=== PATIENT | female | born 1965 | race Caucasian/White ===

== ENCOUNTER 2016-09-19 10:22 | Emergency (ER) | payer OTHER ==
[2016-09-19] MEDS ORDERED: ADENOSINE 3 MG/ML 2 ML VIAL IVP STA (10:59)
[2016-09-19] MEDS ORDERED: SODIUM CHLORIDE 0.9% 500 ML IV STA (11:00)
--- NOTE | 2016-09-19 11:05 | ED ---
General Adult HPI - General Chief complaint: Chest Pain Stated complaint: chest pain Time Seen by Provider: 09/19/16 10:25 Source: patient, RN notes reviewed Mode of arrival: wheelchair - History of Present Illness Initial comments: This is a 51-year-old female who presents to the emergency department complaining of palpitations and little lightheadedness. Patient states she's had SVT 5 times in the past. Patient states this started about 9:30 this morning while she was walking across the floor. Patient states a lot of times she can hold of breath and making go away but today she was unsuccessful with this technique. Patient denies any chest pain. Patient denies any recent fever chills or cough. Patient denies any headache patient denies numbness weakness. Patient denies abdominal pain patient denies nausea vomiting diarrhea. - Related Data Home Medications Medication Instructions Recorded Confirmed Aspirin 162 mg PO DAILY PRN 09/19/16 09/19/16 Ibuprofen [Motrin] 800 mg PO DAILY PRN 09/19/16 09/19/16 Multivitamins, Thera [Multivitamin] 1 tab PO DAILY 09/19/16 09/19/16 Allergies Allergy/AdvReac Type Severity Reaction Status Date / Time amoxicillin [From Augmentin] Allergy Rash/Hives Verified 09/19/16 11:06 clavulanic acid Allergy Rash/Hives Verified 09/19/16 11:06 [From Augmentin] ether Allergy Rash/Hives Verified 09/19/16 11:06 Review of Systems ROS Statement: Those systems with pertinent positive or pertinent negative responses have been documented in the HPI. ROS Other: All systems not noted in ROS Statement are negative. Past Medical History Past Medical History: Supraventricular Tachycardia (SVT) Additional Past Medical History / Comment(s): Brain tumor removed 1993, SVT History of Any Multi-Drug Resistant Organisms: None Reported Past Surgical History: Orthopedic Surgery, Tonsillectomy, Tubal Ligation Additional Past Surgical History / Comment(s): brain surgery/ knee Past Psychological History: Anxiety Smoking Status: Never smoker Past Alcohol Use History: Rare Past Drug Use History: None Reported General Exam - General Exam Comments Initial Comments: GENERAL: Patient is well-developed and well-nourished. Patient is nontoxic and well- hydrated and is in mild distress. ENT: Neck is soft and supple. No significant lymphadenopathy is noted. Oropharynx is clear. Moist mucous membranes. Neck has full range of motion without eliciting any pain. EYES: The sclera were anicteric and conjunctiva were pink and moist. Extraocular movements were intact and pupils were equal round and reactive to light. Eyelids were unremarkable. PULMONARY: Unlabored respirations. Good breath sounds bilaterally. No audible rales rhonchi or wheezing was noted. CARDIOVASCULAR: Patient is tachycardic at 180 beats a minute ABDOMEN: Soft and nontender with normal bowel sounds. No palpable organomegaly was noted. There is no palpable pulsatile mass. SKIN: Skin is clear with no lesions or rashes and otherwise unremarkable. NEUROLOGIC: Patient is alert and oriented x3. Cranial nerves II through XII are grossly intact. Motor and sensory are also intact. Normal speech, volume and content. Symmetrical smile. MUSCULOSKELETAL: Normal extremities with adequate strength and full range of motion. No lower extremity swelling or edema. No calf tenderness. LYMPHATICS: No significant lymphadenopathy is noted PSYCHIATRIC: Normal psychiatric evaluation. Normal interpersonal interactions appears functionally intact in deals appropriately with others. No signs of depression. No signs of anxiety. Course Vital Signs 09/19/16 09/19/16 09/19/16 10:25 10:30 11:33 Temperature 97.5 F L Pulse Rate 185 H 88 93 Respiratory 22 18 18 Rate Blood Pressure 142/77 160/77 110/73 O2 Sat by Pulse 99 98 98 Oximetry Medical Decision Making - Medical Decision Making EKG shows supraventricular tachycardia 181 bpm QRS is 72 QT interval is 246 QTC is 427 per patient's EKG does show some diffuse ST segment depression in the precordial leads a repeat will be done once the patient is converted. Patient was given 6 no evidence of adenosine converted the patient to sinus rhythm. Patient's second EKG after adenosine showed normal sinus rhythm at 90 bpm. It was 152 QRS is 70 QT interval 390 QTC is 477. Chest x-ray was normal. Went back into reevaluate the patient she was feeling back to her baseline. - Lab Data Result diagrams: 09/19/16 10:50 09/19/16 10:50 Lab Results 09/19/16 09/19/16 09/19/16 Range/Units 10:50 10:50 10:50 WBC 9.2 (3.8-10.6) k/uL RBC 5.00 (3.80-5.40) m/uL Hgb 14.8 (11.4-16.0) gm/dL Hct 44.7 (34.0-46.0) % MCV 89.4 (80.0-100.0) fL MCH 29.6 (25.0-35.0) pg MCHC 33.1 (31.0-37.0) g/dL RDW 13.5 (11.5-15.5) % Plt Count 218 (150-450) k/uL Neutrophils % 57 % Lymphocytes % 34 % Monocytes % 5 % Eosinophils % 2 % Basophils % 0 % Neutrophils # 5.2 (1.3-7.7) k/uL Lymphocytes # 3.1 (1.0-4.8) k/uL Monocytes # 0.4 (0-1.0) k/uL Eosinophils # 0.1 (0-0.7) k/uL Basophils # 0.0 (0-0.2) k/uL PT (9.0-12.0) sec INR (<1.1) APTT (22.0-30.0) sec Sodium 143 (137-145) mmol/L Potassium 4.2 (3.5-5.1) mmol/L Chloride 109 H (98-107) mmol/L Carbon Dioxide 21 L (22-30) mmol/L Anion Gap 13 mmol/L BUN 14 (7-17) mg/dL Creatinine 0.61 (0.52-1.04) mg/dL Est GFR (MDRD) Af Amer >60 (>60 ml/min/1.73 sqM) Est GFR (MDRD) Non-Af >60 (>60 ml/min/1.73 sqM) Glucose 142 H (74-99) mg/dL Calcium 9.1 (8.4-10.2) mg/dL Magnesium 1.7 (1.6-2.3) mg/dL Total Bilirubin 0.6 (0.2-1.3) mg/dL AST 33 (14-36) U/L ALT 46 (9-52) U/L Alkaline Phosphatase 95 (38-126) U/L Total Creatine Kinase 80 (30-135) U/L CK-MB (CK-2) 0.3 (0.0-2.4) ng/mL CK-MB (CK-2) Rel Index 0.4 Troponin I <0.012 (0.000-0.034) ng/mL Total Protein 7.3 (6.3-8.2) g/dL Albumin 3.9 (3.5-5.0) g/dL 09/19/16 Range/Units 10:50 WBC (3.8-10.6) k/uL RBC (3.80-5.40) m/uL Hgb (11.4-16.0) gm/dL Hct (34.0-46.0) % MCV (80.0-100.0) fL MCH (25.0-35.0) pg MCHC (31.0-37.0) g/dL RDW (11.5-15.5) % Plt Count (150-450) k/uL Neutrophils % % Lymphocytes % % Monocytes % % Eosinophils % % Basophils % % Neutrophils # (1.3-7.7) k/uL Lymphocytes # (1.0-4.8) k/uL Monocytes # (0-1.0) k/uL Eosinophils # (0-0.7) k/uL Basophils # (0-0.2) k/uL PT 10.3 (9.0-12.0) sec INR 1.0 (<1.1) APTT 23.7 (22.0-30.0) sec Sodium (137-145) mmol/L Potassium (3.5-5.1) mmol/L Chloride (98-107) mmol/L Carbon Dioxide (22-30) mmol/L Anion Gap mmol/L BUN (7-17) mg/dL Creatinine (0.52-1.04) mg/dL Est GFR (MDRD) Af Amer (>60 ml/min/1.73 sqM) Est GFR (MDRD) Non-Af (>60 ml/min/1.73 sqM) Glucose (74-99) mg/dL Calcium (8.4-10.2) mg/dL Magnesium (1.6-2.3) mg/dL Total Bilirubin (0.2-1.3) mg/dL AST (14-36) U/L ALT (9-52) U/L Alkaline Phosphatase (38-126) U/L Total Creatine Kinase (30-135) U/L CK-MB (CK-2) (0.0-2.4) ng/mL CK-MB (CK-2) Rel Index Troponin I (0.000-0.034) ng/mL Total Protein (6.3-8.2) g/dL Albumin (3.5-5.0) g/dL Critical Care Time Critical Care Time: Yes Total Critical Care Time: 35 Disposition Clinical Impression: Supraventricular tachycardia Disposition: HOME SELF-CARE Condition: Good Instructions: Supraventricular Tachycardia (ED) Referrals: Za Love MD [Primary Care Provider] - 1-2 days Time of Disposition: 13:03
[2016-09-19 11:38] LABS: ALT 46 U/L (9-52); AST 33 U/L (14-36); Alkaline Phosphatase 95 U/L (38-126); Anion Gap 13 mmol/L; Blood Urea Nitrogen 14 mg/dL (7-17); Calcium 9.1 mg/dL (8.4-10.2); Carbon Dioxide 21 mmol/L (22-30); Chloride 109 mmol/L (98-107); Glucose 142 mg/dL (74-99); Magnesium 1.7 mg/dL (1.6-2.3); Non-African American GFR(MDRD) >60 (>60 ml/min/1.73 sqM); Potassium 4.2 mmol/L (3.5-5.1); Sodium 143 mmol/L (137-145); Total Bilirubin 0.6 mg/dL (0.2-1.3); Total Protein 7.3 g/dL (6.3-8.2)
[2016-09-19 11:42] LABS: Basophils % (A) 0 %; CH 30.4; CHCM 34.2; Eosinophils # (A) 0.1 k/uL (0-0.7); Eosinophils % (A) 2 %; HCT 44.7 % (34.0-46.0); HDW 2.85; HGB 14.8 gm/dL (11.4-16.0); Luc % (Auto) 2; Lymphocytes # (A) 3.1 k/uL (1.0-4.8); Lymphocytes % (A) 34 %; MCH 29.6 pg (25.0-35.0); MCHC 33.1 g/dL (31.0-37.0); MCV 89.4 fL (80.0-100.0); Monocytes # (A) 0.4 k/uL (0-1.0); Monocytes % (A) 5 %; Neutrophils # (A) 5.2 k/uL (1.3-7.7); Neutrophils % (A) 57 %; RDW 13.5 % (11.5-15.5); WBC 9.2 k/uL (3.8-10.6); WBC (Perox) 9.48
[2016-09-19 11:48] LABS: Creatine Kinase 80 U/L (30-135)
[2016-09-19 11:52] LABS: Partial Thromboplastin Time 23.7 sec (22.0-30.0); Prothrombin Time 10.3 sec (9.0-12.0)
[2016-09-19 12:01] LABS: Creatine Kinase MB 0.3 ng/mL (0.0-2.4); Troponin I <0.012 ng/mL (0.000-0.034)
--- NOTE | 2016-09-19 12:54 | XR ---
EXAMINATION TYPE: XR chest 2V DATE OF EXAM: 09/19/2016 12:49 PM COMPARISON: 10/15/2014 INDICATION: Chest pain SVT episode TECHNIQUE: Frontal and lateral views of the chest are obtained. FINDINGS: The heart size is normal. Pulmonary vasculature is at the upper limits of normal for size. Consider early volume overload. The lungs are clear. IMPRESSION: 1. Early volume overload could be considered with minimal borderline prominence of the pulmonary vasc ular markings. Overt failure is not identified.
[2016-09-19 13:24] VITALS: BP 162/87; PULSE 83; RESP 16; TEMP 97.7
== END 2016-09-19 13:44 | disposition home or self-care (01) ==
LOC: EC 10:22
DX: I47.1 Supraventricular tachycardia (principal); Z88.0 Allergy status to penicillin; Z88.8 Allergy status to other drugs, medicaments and biological substances
CPT/HCPCS: 96374; 99291; 36415; 93005; 80053; 82550; 82553; 83735; 84484; 85025; 85610; 85730; 71020; J0153

== ENCOUNTER 2023-10-27 12:22 | Emergency (ER) | payer OTHER ==
[2023-10-27 12:33] VITALS: RESP 18; TEMP 97.8
--- NOTE | 2023-10-27 13:26 | ED ---
Weakness HPI - General Chief complaint: Weakness Stated complaint: Weakness in legs Time Seen by Provider: 10/27/23 12:47 Source: patient, RN notes reviewed, old records reviewed, Caregiver Mode of arrival: ambulatory Limitations: no limitations - History of Present Illness Initial comments: This is a 58-year-old female to ER for bilateral lower extremity weakness. Patient has history of back pain and states she always has weak lower extremities and states that this is nothing new for her states that he thinks that she is having patient with stroke secondary to patient facial droop that he noticed today. The symptoms started when the patient woke this morning and have persisted here in the emergency department per the family the patient is herself denying any symptoms and would not be in the hospital but was not f for them MD Complaint: generalized weakness, focal weakness (Left side of face), numbness, tingling (Both legs) -: hour(s) Location: generalized Severity: mild Severity scale (1-10): 3 Consistency: constant Improves with: none Worsens with: none Context: recent illness, history of similar Associated Symptoms: denies other symptoms - Related Data Home Medications Medication Instructions Recorded Confirmed Aspirin 162 mg PO DAILY PRN 09/19/16 09/19/16 Ibuprofen [Motrin] 800 mg PO DAILY PRN 09/19/16 09/19/16 Multivitamins, Thera [Multivitamin] 1 tab PO DAILY 09/19/16 09/19/16 Allergies Allergy/AdvReac Type Severity Reaction Status Date / Time amoxicillin [From Augmentin] Allergy Rash/Hives Verified 10/27/23 12:32 clavulanic acid Allergy Rash/Hives Verified 10/27/23 12:32 [From Augmentin] ether Allergy Rash/Hives Verified 10/27/23 12:32 Review of Systems ROS Statement: Those systems with pertinent positive or pertinent negative responses have been documented in the HPI. ROS Other: All systems not noted in ROS Statement are negative. Past Medical History Past Medical History: Supraventricular Tachycardia (SVT) Additional Past Medical History / Comment(s): Brain tumor removed 1993, SVT History of Any Multi-Drug Resistant Organisms: None Reported Past Surgical History: Orthopedic Surgery, Tonsillectomy, Tubal Ligation Additional Past Surgical History / Comment(s): brain surgery/ knee Past Psychological History: Anxiety Smoking Status: Never smoker Past Alcohol Use History: Rare Past Drug Use History: None Reported General Exam - General Exam Comments Initial Comments: Patient does have a negative NIH here in the emergency department Limitations: no limitations General appearance: alert, in no apparent distress Head exam: Present: atraumatic, normocephalic, normal inspection Eye exam: Present: normal appearance, PERRL, EOMI. Absent: scleral icterus, conjunctival injection, periorbital swelling ENT exam: Present: normal exam, mucous membranes moist Neck exam: Present: normal inspection. Absent: tenderness, meningismus, lympha denopathy Respiratory exam: Present: normal lung sounds bilaterally. Absent: respiratory distress, wheezes, rales, rhonchi, stridor Cardiovascular Exam: Present: regular rate, normal rhythm, normal heart sounds. Absent: systolic murmur, diastolic murmur, rubs, gallop, clicks GI/Abdominal exam: Present: soft, normal bowel sounds. Absent: distended, tenderness, guarding, rebound, rigid Extremities exam: Present: normal inspection, full ROM, normal capillary refill. Absent: tenderness, pedal edema, joint swelling, calf tenderness Back exam: Present: normal inspection Neurological exam: Present: alert, oriented X3, CN II-XII intact Psychiatric exam: Present: normal affect, normal mood Skin exam: Present: warm, dry, intact, normal color. Absent: rash Course Vital Signs 10/27/23 10/27/23 12:26 15:31 Temperature 97.8 F Pulse Rate 76 78 Respiratory 18 18 Rate Blood Pressure 141/78 149/68 O2 Sat by Pulse 98 97 Oximetry - Reevaluation(s) Reevaluation #1: Medical records reviewed Reevaluation #2: Patient symptoms remain unchanged with patient refuses to agree that she has facial droop, she has looked in the mirror twice continuing to deny this althoug h disagrees Reevaluation #3: Patient informed of results and questions answered Reevaluation #4: 10/27/23 15:10 Was pt. sent in by a medical professional or institution (, PA, AIRPLANE RENTAL CLERK, urgent care, hospital, or fdc...) When possible be specific @ -no Did you speak to anyone other than the patient for history (EMS, parent, family, police, friend...)? What history was obtained from this source @ -no Did you review nursing and triage notes (agree or disagree)? Why? @ -agree Are old charts reviewed (outside hosp., previous admission, EMS record, old EKG, old radiological studies, urgent care reports/EKG's, fdc records)? Report findings @ -yes Differential Diagnosis (chest pain, altered mental status, abdominal pain women, abdominal pain men, vaginal bleeding, weakness, fever, dyspnea, syncope, headache, dizziness, GI bleed, back pain, seizure, CVA, palpatations, mental health, musculoskeletal)? @ -prior EKG interpreted by me (3pts min.). @ -yes X-rays interpreted by me (1pt min.). @ -yes negative for acute disease CT interpreted by me (1pt min.). @ -yes negative for acute disease U/S interpreted by me (1pt. min.). @ -no What testing was considered but not performed or refused? (CT, X-rays, U/S, labs)? Why? @ -none What meds were considered but not given or refused? Why? @ -none Did you discuss the management of the patient with other professionals (professionals i.e. , PA, AIRPLANE RENTAL CLERK, lab, RT, psych nurse, social psychologist, tool technician, teacher, chief operations officer, rn field case manager)? Give summary @ -no Was smoking cessation discussed for >3mins.? @ -no Was critical care preformed (if so, how long)? @ -no Were there social determinants of health that impacted care today? How? (Homelessness, low income, unemployed, alcoholism, drug addiction, transportation, low edu. Level, literacy, decrease access to med. care, correction, rehab)? @ -none Was there de-escalation of care discussed even if they declined (Discuss DNR or withdrawal of care, Hospice)? DNR status @ -no What co-morbidities impacted this encounter? (DM, HTN, Smoking, COPD, CAD, Cancer, CVA, ARF, Chemo, Hep., AIDS, mental health diagnosis, sleep apnea, morbid obesity)? @ -none Was patient admitted / discharged? Hospital course, mention meds given and route, prescriptions, significant lab abnormalities, going to OR and other pertinent info. @ - 58 female with some weakness in the legs concern for possible stroke. Patient has no findings of CVA here in the emergency department. No other complaints feeling well symptoms are continually improved. Patient refuses further evaluation here in the emergency department and does not believe she is having any stroke symptoms Discharge Undiagnosed new problem with uncertain prognosis? @ -no Drug Therapy requiring intensive monitoring for toxicity (Heparin, Nitro, Insulin, Cardizem)? @ -no Were any procedures done? @ -no Diagnosis/symptom? @ -TIA Acute, or Chronic, or Acute on Chronic? @ -Acute Uncomplicated (without systemic symptoms) or Complicated (systemic symptoms)? @ -Complicated Side effects of treatment? @ -no Exacerbation, Progression, or Severe Exacerbation? @ -exacerbation Poses a threat to life or bodily function? How? (Chest pain, USA, MA, pneumonia, PE, COPD, DKA, ARF, appy, cholecystitis, CVA, Diverticulitis, Homicidal, Suicidal, threat to staff... and all critical care pts) @ -yes with findings of CVA Reevaluation #5: Differential CVA Ischemic stroke, hemorrhagic stroke, brain tumor, atypical migraine, Wernicke's encephalopathy, seizure, multiple sclerosis, meningitis, encephalitis, hypoglycemia, Guillain-Winters, electrolytes disturbance, myasthenia gravis.... This is not meant to be an all-inclusive list EKG Findings - EKG Comments: EKG Findings:: EKG sinus 75 [place] 149 QRS 90 QTc 442 - EKG Results: EKG: interpreted by MIKE Medical Decision Making - Medical Decision Making 58 female with some weakness in the legs concern for possible stroke. Patient has no findings of CVA here in the emergency department. No other complaints feeling well symptoms are continually improved. Patient refuses further evaluation here in the emergency department and does not believe she is having any stroke symptoms - Lab Data Result diagrams: 10/27/23 13:41 10/27/23 13:41 Lab Results 10/27/23 10/27/23 10/27/23 Range/Units 13:41 13:41 13:41 WBC 9.8 (3.8-10.6) k/uL RBC 4.88 (3.80-5.40) m/uL Hgb 14.9 (11.4-16.0) gm/dL Hct 44.5 (34.0-46.0) % MCV 91.1 (80.0-100.0) fL MCH 30.5 (25.0-35.0) pg MCHC 33.5 (31.0-37.0) g/dL RDW 13.3 (11.5-15.5) % Plt Count 175 (150-450) k/uL MPV 9.5 Neutrophils % 61 % Lymphocytes % 32 % Monocytes % 4 % Eosinophils % 2 % Basophils % 1 % Neutrophils # 6.0 (1.3-7.7) k/uL Lymphocytes # 3.1 (1.0-4.8) k/uL Monocytes # 0.4 (0-1.0) k/uL Eosinophils # 0.1 (0-0.7) k/uL Basophils # 0.1 (0-0.2) k/uL Sodium 138 (137-145) mmol/L Potassium 4.4 (3.5-5.1) mmol/L Chloride 108 H (98-107) mmol/L Carbon Dioxide 25 (22-30) mmol/L Anion Gap 5 mmol/L BUN 14 (7-17) mg/dL Creatinine 0.39 L (0.52-1.04) mg/dL Est GFR (CKD-EPI)AfAm >90 (>60 ml/min/1.73 sqM) Est GFR (CKD-EPI)NonAf >90 (>60 ml/min/1.73 sqM) Glucose 223 H (74-99) mg/dL Plasma Lactic Acid Maxime 1.3 (0.7-2.0) mmol/L Calcium 9.2 (8.4-10.2) mg/dL Phosphorus 3.8 (2.5-4.5) mg/dL Magnesium 1.7 (1.6-2.3) mg/dL Total Bilirubin 0.6 (0.2-1.3) mg/dL AST 41 H (14-36) U/L ALT 38 H (4-34) U/L Alkaline Phosphatase 120 (38-126) U/L Troponin I (0.000-0.034) ng/mL Total Protein 7.1 (6.3-8.2) g/dL Albumin 3.7 (3.5-5.0) g/dL Urine Color Urine Appearance (Clear) Urine pH (5.0-8.0) Ur Specific Pierre (1.001-1.035) Urine Protein (Negative) Urine Glucose (UA) (Negative) Urine Ketones (Negative) Urine Blood (Negative) Urine Nitrite (Negative) Urine Bilirubin (Negative) Urine Urobilinogen (<2.0) mg/dL Ur Leukocyte Esterase (Negative) 10/27/23 10/27/23 Range/Units 13:41 13:41 WBC (3.8-10.6) k/uL RBC (3.80-5.40) m/uL Hgb (11.4-16.0) gm/dL Hct (34.0-46.0) % MCV (80.0-100.0) fL MCH (25.0-35.0) pg MCHC (31.0-37.0) g/dL RDW (11.5-15.5) % Plt Count (150-450) k/uL MPV Neutrophils % % Lymphocytes % % Monocytes % % Eosinophils % % Basophils % % Neutrophils # (1.3-7.7) k/uL Lymphocytes # (1.0-4.8) k/uL Monocytes # (0-1.0) k/uL Eosinophils # (0-0.7) k/uL Basophils # (0-0.2) k/uL Sodium (137-145) mmol/L Potassium (3.5-5.1) mmol/L Chloride (98-107) mmol/L Carbon Dioxide (22-30) mmol/L Anion Gap mmol/L BUN (7-17) mg/dL Creatinine (0.52-1.04) mg/dL Est GFR (CKD-EPI)AfAm (>60 ml/min/1.73 sqM) Est GFR (CKD-EPI)NonAf (>60 ml/min/1.73 sqM) Glucose (74-99) mg/dL Plasma Lactic Acid Maxime (0.7-2.0) mmol/L Calcium (8.4-10.2) mg/dL Phosphorus (2.5-4.5) mg/dL Magnesium (1.6-2.3) mg/dL Total Bilirubin (0.2-1.3) mg/dL AST (14-36) U/L ALT (4-34) U/L Alkaline Phosphatase (38-126) U/L Troponin I <0.012 (0.000-0.034) ng/mL Total Protein (6.3-8.2) g/dL Albumin (3.5-5.0) g/dL Urine Color Light Yellow Urine Appearance Clear (Clear) Urine pH 5.5 (5.0-8.0) Ur Specific Pierre 1.047 H (1.001-1.035) Urine Protein Negative (Negative) Urine Glucose (UA) 4+ H (Negative) Urine Ketones Negative (Negative) Urine Blood Negative (Negative) Urine Nitrite Negative (Negative) Urine Bilirubin Negative (Negative) Urine Urobilinogen <2.0 (<2.0) mg/dL Ur Leukocyte Esterase Negative (Negative) - EKG Data -: EKG Interpreted by Pr - Radiology Data Radiology results: report reviewed (CT brain and CTA head neck chest x-ray is negative for acute disease), image reviewed Disposition Clinical Impression: TIA (transient ischemic attack), CVA (cerebral vascular accident), Weakness Disposition: HOME SELF-CARE Condition: Good Instructions (If sedation given, give patient instructions): Transient Ischemic Attack (ED), Self Care Measures After a Stroke (ED) Is patient prescribed a controlled substance at d/c from ED?: No Referrals: Za Love MD [Primary Care Provider] - 1-2 days Time of Disposition: 16:00
[2023-10-27] MEDS: SODIUM CHLORIDE 0.9% 1,000 ML IV STA (14:17)
[2023-10-27 14:27] LABS: Basophils # (A) 0.1 k/uL (0-0.2); Basophils % (A) 1 %; Eosinophils # (A) 0.1 k/uL (0-0.7); Eosinophils % (A) 2 %; HCT 44.5 % (34.0-46.0); HGB 14.9 gm/dL (11.4-16.0); Lymphocytes # (A) 3.1 k/uL (1.0-4.8); Lymphocytes % (A) 32 %; MCH 30.5 pg (25.0-35.0); MCHC 33.5 g/dL (31.0-37.0); MCV 91.1 fL (80.0-100.0); Mean Platelet Volume 9.5; Monocytes # (A) 0.4 k/uL (0-1.0); Monocytes % (A) 4 %; Neutrophils % (A) 61 %; Platelet Count 175 k/uL (150-450); RBC 4.88 m/uL (3.80-5.40); RDW 13.3 % (11.5-15.5); WBC 9.8 k/uL (3.8-10.6)
[2023-10-27 14:37] LABS: ALT 38 U/L (4-34); AST 41 U/L (14-36); African American GFR (CKD) >90 (>60 ml/min/1.73 sqM); Albumin 3.7 g/dL (3.5-5.0); Alkaline Phosphatase 120 U/L (38-126); Anion Gap 5 mmol/L; Blood Urea Nitrogen 14 mg/dL (7-17); Calcium 9.2 mg/dL (8.4-10.2); Carbon Dioxide 25 mmol/L (22-30); Chloride 108 mmol/L (98-107); Glucose 223 mg/dL (74-99); Magnesium 1.7 mg/dL (1.6-2.3); Non-African American GFR(CKD) >90 (>60 ml/min/1.73 sqM); Phosphorus 3.8 mg/dL (2.5-4.5); Potassium 4.4 mmol/L (3.5-5.1); Sodium 138 mmol/L (137-145); Total Bilirubin 0.6 mg/dL (0.2-1.3); Total Protein 7.1 g/dL (6.3-8.2)
[2023-10-27 15:39] VITALS: BP 149/68; PULSE 78
--- NOTE | 2023-10-27 15:42 | CT ---
EXAMINATION TYPE: CT angio head neck CT DLP: 1899.7 mGycm, Automated exposure control for dose reduction was used. DATE OF EXAM: 10/27/2023 3:13 PM COMPARISON: Same day CT head. CLINICAL INDICATION:Female, 58 years old with history of AMS; PHH, weakness in legs today TECHNIQUE: Axially acquired helical CT angiogram of the head and neck was obtained with contrast. Axi al images are supplemented with 3D reconstructions and MIP images which were post-processed at an in dependent workstation. NASCET criteria used. Contrast used:65 mL of Isovue 300 with IV Contrast, Oral contrast used: None. FINDINGS: CTA HEAD: No evidence of acute intracranial hemorrhage, mass effect, or midline shift. The ventricles, sulci, a nd cisterns are unremarkable. Craniotomy changes to the right skull. The visualized portions of the internal carotid arteries, middle cerebral arteries, anterior cerebral arteries, and posterior cerebral arteries are patent. Atherosclerosis of the carotid siphons bilater ally. The basilar and vertebral arteries are patent. CTA NECK: Right Carotid System: The common carotid and external carotid arteries are patent. There is less than 25% stenosis at the c arotid bifurcation secondary to calcified/noncalcified plaque. The rest of the internal carotid arter y is patent. Left Carotid System: The common carotid and external carotid arteries are patent. There is less than 25% stenosis at the c arotid bifurcation secondary to calcified/noncalcified plaque. The rest of the internal carotid arter y is patent. Vertebral arteries are patent without evidence hemodynamically significant stenosis. Right dominant v ertebral artery. There is a three-vessel aortic arch. The origins of the great vessels are patent. No evidence of hemo dynamically significant stenosis. IMPRESSION: 1. No evidence of dissection of the cervical internal carotid arteries or vertebral arteries or any e vidence of significant stenosis at the carotid bifurcations. 2. No evidence of intracranial high-grade stenosis or intracranial aneurysm.
--- NOTE | 2023-10-27 15:43 | CT ---
EXAMINATION TYPE: CT brain wo con CT DLP: 1899.7 mGycm, Automated exposure control for dose reduction was used. DATE OF EXAM: 10/27/2023 3:13 PM COMPARISON: None. CLINICAL INDICATION:Female, 58 years old with history of weakness, weakness in legs today TECHNIQUE: Brain: Axial CT images of the brain were obtained with coronal and sagittal reformats created and rev iewed. Contrast used: None. Oral contrast used: None. FINDINGS: Brain: Extra-axial spaces: No abnormal extra-axial fluid collections. Ventricular system: Dilatation in proportion to cerebral atrophy. Cerebral parenchyma: Cerebral atrophy. No acute intraparenchymal hemorrhage or mass effect. The silver -white junction is well differentiated. Scattered hypoattenuating areas are seen within the white mat ter. Cerebellum: Unremarkable. Mass effect: No evidence of midline shift. Intracranial vasculature: Atherosclerotic calcifications of the intracranial vessels. Soft tissues: Normal. Calvarium/osseous structures: No depressed skull fracture. Craniotomy changes to the right frontal sk ull. Paranasal sinuses and mastoid air cells: Mild scattered paranasal sinus disease. Visualized orbits: Orbital contents are intact. IMPRESSION: 1. No acute intracranial process. 2. Nonspecific white matter changes, likely secondary to chronic small vessel ischemic disease.
--- NOTE | 2023-10-27 15:43 | XR ---
EXAMINATION TYPE: XR chest 2V DATE OF EXAM: 10/27/2023 3:02 PM CLINICAL INDICATION:Female, 58 years old with history of Weakness; PHH COMPARISON: Chest radiographs from 09/19/2016. TECHNIQUE: XR chest 2V Frontal and lateral views of the chest. FINDINGS: Lungs/Pleura: There is no evidence of pleural effusion, focal consolidation, or pneumothorax. Pulmonary vascularity: Unremarkable. Heart/mediastinum: Cardiomediastinal silhouette is enlarged and stable. Musculoskeletal: No acute osseous pathology. IMPRESSION: Low lung volumes with a generalized hazy appearance which could represent atelectasis versus pulmonar y edema correlate with serum BNP.
[2023-10-27] MEDS: ASPIRIN 81 MG PO STA (16:34)
[2023-10-27 16:37] LABS: Appearance,Urine Clear (Clear); Bilirubin,Urine Negative (Negative); Blood,Urine Negative (Negative); Color,Urine Light Yellow; Glucose,Urine (UA) 4+ (Negative); Ketones,Urine Negative (Negative); Leukocyte Esterase,Urine Negative (Negative); Nitrite,Urine Negative (Negative); PH, Urine 5.5 (5.0-8.0); Protein,Urine Negative (Negative); Urobilinogen,Urine <2.0 mg/dL (<2.0)
[2023-10-27 16:59] LABS: Specific Gravity,Urine 1.047 (1.001-1.035)
== END 2023-10-27 16:30 | disposition home or self-care (01) ==
LOC: EC 12:22
DX: I63.9 Cerebral infarction, unspecified (principal); G45.9 Transient cerebral ischemic attack, unspecified; Z86.59 Personal history of other mental and behavioral disorders; Z79.82 Long term (current) use of aspirin; Z88.0 Allergy status to penicillin; Z88.1 Allergy status to other antibiotic agents
CPT/HCPCS: 96360 ×2; 96361 ×2; 99285 ×2; 36415; 93005; 80053; 83605; 83735; 84100; 84484; 85025; 81003; 71046; 70496; 70450; 70498; Q9967

== ENCOUNTER 2023-12-31 11:26 | Emergency (ER) | payer OTHER ==
[2023-12-31 11:59] VITALS: TEMP 97.6
[2023-12-31] MEDS: SODIUM CHLORIDE 0.9% 500 ML 500 ML IV STA (12:00)
--- NOTE | 2023-12-31 12:07 | ED ---
General Adult HPI - General Chief complaint: Shortness of Breath Stated complaint: SOB,chest pain Time Seen by Provider: 12/31/23 11:40 Source: patient, RN notes reviewed, old records reviewed Mode of arrival: ambulatory Limitations: no limitations - History of Present Illness Initial comments: This is a 58-year-old female who states she has a history of SVT. Patient states this morning she woke up and she became dyspneic and it has not subsided yet. Patient states she tried to do some exercises where she bear down but it did not relieve the dyspnea. Patient denies any chest pain patient has any back pain. Patient has any recent fever chills or cough or patient has any swelling to the legs or calf tenderness. - Related Data Home Medications Medication Instructions Recorded Confirmed Aspirin 162 mg PO DAILY PRN 09/19/16 09/19/16 Ibuprofen [Motrin] 800 mg PO DAILY PRN 09/19/16 09/19/16 Multivitamins, Thera [Multivitamin] 1 tab PO DAILY 09/19/16 09/19/16 Allergies Allergy/AdvReac Type Severity Reaction Status Date / Time amoxicillin [From Augmentin] Allergy Rash/Hives Verified 12/31/23 11:37 clavulanic acid Allergy Rash/Hives Verified 12/31/23 11:37 [From Augmentin] ether Allergy Rash/Hives Verified 12/31/23 11:37 Review of Systems ROS Statement: Those systems with pertinent positive or pertinent negative responses have been documented in the HPI. ROS Other: All systems not noted in ROS Statement are negative. Past Medical History Past Medical History: Supraventricular Tachycardia (SVT) Additional Past Medical History / Comment(s): Brain tumor removed 1993, SVT History of Any Multi-Drug Resistant Organisms: None Reported Past Surgical History: Orthopedic Surgery, Tonsillectomy, Tubal Ligation Additional Past Surgical History / Comment(s): brain surgery/ knee Past Psychological History: Anxiety Smoking Status: Never smoker Past Alcohol Use History: Rare Past Drug Use History: None Reported General Exam - General Exam Comments Initial Comments: GENERAL: Patient is well-developed and well-nourished. Patient is nontoxic and well- hydrated and is in mild distress. ENT: Neck is soft and supple. No significant lymphadenopathy is noted. Oropharynx is clear. Moist mucous membranes. Neck has full range of motion without eliciting any pain. EYES: The sclera were anicteric and conjunctiva were pink and moist. Extraocular movements were intact and pupils were equal round and reactive to light. Eyelids were unremarkable. PULMONARY: Unlabored respirations. Good breath sounds bilaterally. No audible rales rhonchi or wheezing was noted. CARDIOVASCULAR: Patient is tachycardic at 180 beats a minute ABDOMEN: Soft and nontender with normal bowel sounds. SKIN: Skin is clear with no lesions or rashes and otherwise unremarkable. NEUROLOGIC: Patient is alert and oriented x3. Cranial nerves II through XII are grossly intact. Motor and sensory are also intact. Normal speech, volume and content. Symmetrical smile. MUSCULOSKELETAL: Normal extremities with adequate strength and full range of motion. LYMPHATICS: No significant lymphadenopathy is noted PSYCHIATRIC: Normal psychiatric evaluation. Limitations: no limitations Course Vital Signs 12/31/23 12/31/23 12/31/23 11:34 12:26 13:11 Temperature 97.6 F Pulse Rate 189 H 98 96 Respiratory 20 18 16 Rate Blood Pressure 139/77 139/59 135/85 O2 Sat by Pulse 96 97 97 Oximetry Medical Decision Making - Medical Decision Making EKG is interpreted by myself. EKG shows a SVT at 182 bpm QRS is 90 QT interval 325 QTc is 321. Patient's EKG shows no ST segment ovation or depression. Patient was given adenosine and this converted the patient into a normal sinus rhythm. I repeated EKG EKG is interpreted by myself and shows a sinus rhythm at 96 bpm parables 137 QRS is 89 QT interval 370 QTc is 424. Patient's EKG shows no ST segment ovation or depression. Was pt. sent in by a medical professional or institution (, PA, CALCINER OPERATOR HELPER, urgent care, hospital, or alf...) When possible be specific @ -No Did you speak to anyone other than the patient for history (EMS, parent, family, police, friend...)? What history was obtained from this source @ -No Did you review nursing and triage notes (agree or disagree)? Why? @ -I reviewed and agree with nursing and triage notes Were old charts reviewed (outside hosp., previous admission, EMS record, old EKG, old radiological studies, urgent care reports/EKG's, alf records)? Report findings @ -No old charts were reviewed Differential Diagnosis (chest pain, altered mental status, abdominal pain women, abdominal pain men, vaginal bleeding, weakness, fever, dyspnea, syncope, headache, dizziness, GI bleed, back pain, seizure, CVA, palpatations, mental health, musculoskeletal)? @ -Differential Palpitations Ventricular arrhythmias, atrial arrhythmias, myocardial infarction, anemia, thyrotoxicosis, electrolyte imbalance, hypokalemia, pulmonary embolism, pulmonary disease, drugs, alcohol, anxiety, stress.... This is not meant to be an all-inclusive list. Differential Dyspnea: Coronary syndrome, arrhythmia, tamponade, asthma, COPD, pulmonary embolism, pneumonia, pneumothorax, pulmonary effusion, anaphylaxis, diabetic ketoacidosis, flailed chest, pulmonary contusion, diaphragmatic rupture, anemia, neuromuscular, this is not meant to be an all-inclusive list. EKG interpreted by me (3pts min.). @ -As above X-rays interpreted by me (1pt min.). @ -Chest x-ray shows no acute normality. CT interpreted by me (1pt min.). @ -None done U/S interpreted by me (1pt. min.). @ -None done What testing was considered but not performed or refused? (CT, X-rays, U/S, labs)? Why? @ -None What meds were considered but not given or refused? Why? @ -None Did you discuss the management of the patient with other professionals (professionals i.e. , PA, CALCINER OPERATOR HELPER, lab, RT, psych nurse, social group worker, electronic imager, teacher, bank officer, piano case maker)? Give summary @ -No Was smoking cessation discussed for >3mins.? @ -No Was critical care preformed (if so, how long)? @ -35 minutes Were there social determinants of health that impacted care today? How? (Homelessness, low income, unemployed, alcoholism, drug addiction, transportation, low edu. Level, literacy, decrease access to med. care, prison, rehab)? @ -No Was there de-escalation of care discussed even if they declined (Discuss DNR or withdrawal of care, Hospice)? DNR status @ -No What co-morbidities impacted this encounter? (DM, HTN, Smoking, COPD, CAD, Cancer, CVA, ARF, Chemo, Hep., AIDS, mental health diagnosis, sleep apnea, morbid obesity)? @ -None Was patient admitted / discharged? Hospital course, mention meds given and route, prescriptions, significant lab abnormalities, going to OR and other pertinent info. @ -Patient was given 6 mg of adenosine and this converted the patient into a normal sinus rhythm. Patient remained asymptomatic throughout the ED course. Patient will follow-up with her server assistant. Undiagnosed new problem with uncertain prognosis? @ -No Drug Therapy requiring intensive monitoring for toxicity (Heparin, Nitro, Insulin, Cardizem)? @ -No Were any procedures done? @ -No Diagnosis/symptom? @ -SVT Acute, or Chronic, or Acute on Chronic? @ -Acute Uncomplicated (without systemic symptoms) or Complicated (systemic symptoms)? @ -Complicated Side effects of treatment? @ -No Exacerbation, Progression, or Severe Exacerbation? @ -No Poses a threat to life or bodily function? How? (Chest pain, [place], [place], pneumonia, PE, COPD, DKA, ARF, appy, cholecystitis, CVA, Diverticulitis, Homicidal, Suic idal, threat to staff... and all critical care pts) @ -Yes this could lead to poor cardiac output hypoxia and endorgan dysfunction - Lab Data Result diagrams: 12/31/23 11:55 12/31/23 11:55 Lab Results 12/31/23 12/31/23 12/31/23 Range/Units 11:55 11:55 11:55 WBC 12.4 H (3.8-10.6) k/uL RBC 5.36 (3.80-5.40) m/uL Hgb 15.8 (11.4-16.0) gm/dL Hct 48.7 H (34.0-46.0) % MCV 91.0 (80.0-100.0) fL MCH 29.5 (25.0-35.0) pg MCHC 32.4 (31.0-37.0) g/dL RDW 13.5 (11.5-15.5) % Plt Count 253 (150-450) k/uL MPV 9.3 Neutrophils % 65 % Lymphocytes % 28 % Monocytes % 4 % Eosinophils % 1 % Basophils % 1 % Neutrophils # 8.1 H (1.3-7.7) k/uL Lymphocytes # 3.4 (1.0-4.8) k/uL Monocytes # 0.5 (0-1.0) k/uL Eosinophils # 0.1 (0-0.7) k/uL Basophils # 0.1 (0-0.2) k/uL Sodium 139 (137-145) mmol/L Potassium 4.2 (3.5-5.1) mmol/L Chloride 107 (98-107) mmol/L Carbon Dioxide 18 L (22-30) mmol/L Anion Gap 14 mmol/L BUN 14 (7-17) mg/dL Creatinine 0.68 (0.52-1.04) mg/dL Est GFR (CKD-EPI)AfAm >90 (>60 ml/min/1.73 sqM) Est GFR (CKD-EPI)NonAf >90 (>60 ml/min/1.73 sqM) Glucose 282 H (74-99) mg/dL Calcium 9.5 (8.4-10.2) mg/dL Magnesium 1.6 (1.6-2.3) mg/dL Total Bilirubin 0.8 (0.2-1.3) mg/dL AST 33 (14-36) U/L ALT 28 (4-34) U/L Alkaline Phosphatase 120 (38-126) U/L Troponin I <0.012 (0.000-0.034) ng/mL Total Protein 7.5 (6.3-8.2) g/dL Albumin 4.1 (3.5-5.0) g/dL Disposition Clinical Impression: SVT (supraventricular tachycardia) Disposition: HOME SELF-CARE Condition: Good Instructions (If sedation given, give patient instructions): Supraventricular Tachycardia (ED) Additional Instructions: Patient should follow-up with her server assistant next week. Is patient prescribed a controlled substance at d/c from ED?: No Referrals: Nonstaff,Physician [REFERRING] - 1-2 days Time of Disposition: 13:50
[2023-12-31] MEDS: ADENOSINE 3 MG/ML 2 ML VIAL IVP STA (12:08)
[2023-12-31] MEDS: KETOROLAC 15 MG/ML 1 ML VIAL IVP STA (12:27)
[2023-12-31 12:39] LABS: Basophils # (A) 0.1 k/uL (0-0.2); Basophils % (A) 1 %; Eosinophils # (A) 0.1 k/uL (0-0.7); Eosinophils % (A) 1 %; HCT 48.7 % (34.0-46.0); HGB 15.8 gm/dL (11.4-16.0); Lymphocytes # (A) 3.4 k/uL (1.0-4.8); Lymphocytes % (A) 28 %; MCH 29.5 pg (25.0-35.0); MCHC 32.4 g/dL (31.0-37.0); Mean Platelet Volume 9.3; Monocytes # (A) 0.5 k/uL (0-1.0); Monocytes % (A) 4 %; Neutrophils # (A) 8.1 k/uL (1.3-7.7); Neutrophils % (A) 65 %; Platelet Count 253 k/uL (150-450); RBC 5.36 m/uL (3.80-5.40); RDW 13.5 % (11.5-15.5); WBC 12.4 k/uL (3.8-10.6)
[2023-12-31 12:50] LABS: ALT 28 U/L (4-34); AST 33 U/L (14-36); African American GFR (CKD) >90 (>60 ml/min/1.73 sqM); Albumin 4.1 g/dL (3.5-5.0); Alkaline Phosphatase 120 U/L (38-126); Anion Gap 14 mmol/L; Blood Urea Nitrogen 14 mg/dL (7-17); Calcium 9.5 mg/dL (8.4-10.2); Carbon Dioxide 18 mmol/L (22-30); Chloride 107 mmol/L (98-107); Glucose 282 mg/dL (74-99); Magnesium 1.6 mg/dL (1.6-2.3); Non-African American GFR(CKD) >90 (>60 ml/min/1.73 sqM); Potassium 4.2 mmol/L (3.5-5.1); Sodium 139 mmol/L (137-145); Total Bilirubin 0.8 mg/dL (0.2-1.3); Total Protein 7.5 g/dL (6.3-8.2)
--- NOTE | 2023-12-31 13:44 | XR ---
EXAMINATION TYPE: XR chest 2V DATE OF EXAM: 12/31/2023 12:48 PM CLINICAL INDICATION:Female, 58 years old with history of dysrhythmia; H COMPARISON: Chest radiographs from 10/27/2023 TECHNIQUE: XR chest 2V Frontal and lateral views of the chest. FINDINGS: Lungs/Pleura: There is no evidence of pleural effusion, focal consolidation, or pneumothorax. Pulmonary vascularity: Mild pulmonary vascular congestion. Heart/mediastinum: Cardiomediastinal silhouette is unremarkable. Musculoskeletal: No acute osseous pathology. Other findings: None IMPRESSION: Mild pulmonary vascular congestion. Correlate with BNP for congestive heart failure.
[2023-12-31 14:30] VITALS: BP 135/90; PULSE 90; RESP 18
== END 2023-12-31 13:51 | disposition home or self-care (01) ==
LOC: EC 11:26
DX: I47.10 Supraventricular tachycardia, unspecified (principal); Z88.0 Allergy status to penicillin; Z88.1 Allergy status to other antibiotic agents; Z91.048 Other nonmedicinal substance allergy status
CPT/HCPCS: 36415; 93005; 80053; 83735; 84484; 85025; 71046; 99285; 96374; J0153

== ENCOUNTER → 2024-01-16 | Outpatient (CLI) | payer OTHER ==
[~2024-01-16] MED LIST: DOBUTamine DRIP for NUC MED 500 MG in DEXTROSE/WATER 1 250ML.BAG IV PRN
--- NOTE | 2024-01-16 13:58 | CA ---
Dobutamine Stress Echocardiogram Report Radha Perez Age: 58 Gender: F : 1965 Exam Date: 01/16/2024 10:34 Exam Location: [facility] Ordering Physician: Soledad Mejia DO Referring Physician: Soledad Florentino DO Coil Binder: LISA, Technologist: Ht (in): 63 Wt (lb): 236 Procedure CPT: Indication: I47.10 tachycardia ICD-9 Codes: Rhythm: Patient History: Cardiac Medications: METFORMIN, ROVASTATIN, ASPIRIN Medications in past 24 hours: Contrast: Definity Total Dose (mL): 2 Stress Results Protocol: Dobutamine Peak Dose (???g/kg/min): 40 Duration (min:sec): Atropine:(mg) None Target HR: 136 Double Product: [id number] Resting HR: 72 Resting BP: 154 / 82 Peak HR: 127 Peak BP: 172 / 56 Max Predicted HR: 160 79 % Max Predicted HR Stress Summary: BP Response: Reason for Termination: PER HAM SAWYER/PATIENT WAS SICK Cardiac Symptoms: NAUSEA, DIZZY, LIGHTHEADED, HEADACHE ECG Analysis Resting EKG: Stress EKG: Arrhythmia: Echo Analysis Base Echo Analysis: Low Echo Anaylsis: Peak Echo Analysis: Recovery Echo: MEASUREMENTS (Male/Female) Normal Values CONCLUSIONS Normal electrocardiogram and echocardiogram in response to dobutamine Dr. Jonel Travis MD (Electronically Signed) Final Date: 16 January 2024 13:57
--- NOTE | 2024-01-16 19:51 | MR ---
EXAMINATION TYPE: MR brain wo/w con DATE OF EXAM: 01/16/2024 12:02 PM CLINICAL INDICATION:Female, 58 years old with history of R06.02 SOB neuro deficit; PHH, Meningioma, history of surgery. COMPARISON: 10/27/2023 TECHNIQUE: Multi planar, multi sequence imaging was performed through the brain including: T1, T2, In version recovery, susceptibility weighted imaging and gradient echo imaging and Diffusion weighted im aging. The patient was then given intravenous contrast and multi planar, T1 fat-saturation images wer e obtained. IV Contrast: 11 cc Gadavist FINDINGS: Postsurgical changes to the right skull. Some gliosis within the right basal ganglia sugges tive of prior injury. The silver-white junctions, ventricular system, basal cisterns appear unremarkabl e. Diffusion-weighted imaging shows no evidence of restricted diffusion to suggest acute/subacute in farct. Intracranial arterial flow voids are maintained. Midline structures show no abnormality. Scatt ered foci of high T2 signal intensity are seen within the periventricular white matter. The susceptib ility weighted images do not reveal any evidence for micro-hemorrhage. After administration of gadoli nium, no abnormal enhancement is seen. The bone marrow signal is within normal limits. Paranasal sinuses and mastoid air cells: No significant paranasal sinus disease. Visualized orbits: Orbital contents are intact. IMPRESSION: 1. Post surgical changes right skull no evidence for abnormal postcontrast enhancement. No evidence f or meningioma recurrence. No evidence of intracranial mass, acute/subacute infarct, or abnormal enhan cement. 2. 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
== END | disposition home or self-care (01) ==
LOC: RADNMMAIN 08:58
DX: I47.10 Supraventricular tachycardia, unspecified (principal); G23.8 Other specified degenerative diseases of basal ganglia; J44.9 Chronic obstructive pulmonary disease, unspecified; G45.9 Transient cerebral ischemic attack, unspecified; R10.13 Epigastric pain; R53.1 Weakness; R06.02 Shortness of breath; Z98.890 Other specified postprocedural states
CPT/HCPCS: 93351; 70553; Q9957; A9585

== ENCOUNTER → 2024-01-17 | Outpatient (CLI) | payer OTHER | LOC: CPPFTMAIN 09:33 | PROVIDERS: ATTEND Family Medicine | DX: R06.02 Shortness of breath (principal); J44.9 Chronic obstructive pulmonary disease, unspecified; Z88.0 Allergy status to penicillin; Z88.1 Allergy status to other antibiotic agents; Z91.09 Other allergy status, other than to drugs and biological substances | CPT/HCPCS: 94060; 94726; 94729 ==

== ENCOUNTER → 2024-01-20 | Outpatient (CLI) | payer OTHER ==
--- NOTE | 2024-01-20 13:14 | CA ---
Transthoracic Echo Report Name: Radha Perez Age: 58 Gender: F : 1965 Exam Date: 01/20/2024 10:40 Exam Location: [place] [facility] Ht (in): 63 Wt (lb): 246 Ordering Physician: Soledad Florentino DO Attending/Referring Phys: Soledad Florentino DO Wood Box Maker Daiana Crain RDCS Procedure CPT: Indications: G45.9 TIA Cardiac Hx: Technical Quality: Fair Contrast 1: Definity Total Dose (mL): 2 Contrast 2: Agitated Saline Total Dose (mL): MEASUREMENTS (Male / Female) Normal Values 2D ECHO LV Diastolic Diameter PLAX 4.8 cm 4.2 - 5.9 / 3.9 - 5.3 cm LV Systolic Diameter PLAX 3.2 cm IVS Diastolic Thickness 1.0 cm 0.6 - 1.0 / 0.6 - 0.9 cm LVPW Diastolic Thickness 1.0 cm 0.6 - 1.0 / 0.6 - 0.9 cm LV Relative Wall Thickness 0.4 RV Internal Dim ED PLAX 1.4 cm LA Systolic Diameter LX 3.4 cm 3.0 - 4.0 / 2.7 - 3.8 cm M-MODE Aortic Root Diameter MM 2.3 cm LA Systolic Diameter MM 3.4 cm LA Ao Ratio MM 1.5 DOPPLER AV Peak Velocity 141.0 cm/s AV Peak Gradient 8.0 mmHg LVOT Peak Velocity 69.9 cm/s LVOT Peak Gradient 2.0 mmHg Mitral E Point Velocity 80.5 cm/s Mitral A Point Velocity 87.3 cm/s Mitral E to A Ratio 0.9 MV Deceleration Time 189.4 ms MV E' Velocity 7.7 cm/s Mitral E to MV E' Ratio 10.4 FINDINGS Left Ventricle Left ventricular ejection fraction is estimated at 50 %. Mildly increased septal wall thickness. Mildly increased posterior wall thickness. Normal left ventricular systolic function with no obvious regional wall motion abnormalities. Left ventricular cavity size normal. Right Ventricle Normal right ventricular size and function. Unable to estimate the right ventricular systolic pressure. Right Atrium Normal right atrial size. Negative agitated saline bubble study for right to left shunt. Left Atrium Normal left atrial size. Mitral Valve Structurally normal mitral valve. Trace mitral regurgitation. Aortic Valve Trileaflet aortic valve. No aortic stenosis. No aortic regurgitation. Tricuspid Valve Structurally normal tricuspid valve. Pulmonic Valve Structurally normal pulmonic valve. No pulmonic stenosis. No pulmonic regurgitation. Pericardium No pericardial or pleural effusion. Aorta Normal size aortic root and proximal ascending aorta. CONCLUSIONS Low normal LV systolic function was EF at 50% Previewed by: Dr. Jonel Travis MD (Electronically Signed) Final Date: 20 Jan 2024 13:13
== END | disposition home or self-care (01) ==
LOC: RADECHMAIN 10:25
PROVIDERS: ATTEND Family Medicine
DX: G45.9 Transient cerebral ischemic attack, unspecified (principal)
CPT/HCPCS: 93306

== ENCOUNTER 2024-01-22 11:46 | Observation (INO) | payer OTHER ==
--- NOTE | 2024-01-22 12:28 | ED ---
General Adult HPI - General Chief complaint: Chest Pain Stated complaint: CHEST PAIN Time Seen by Provider: 01/22/24 12:00 Source: patient, RN notes reviewed Mode of arrival: wheelchair Limitations: no limitations - History of Present Illness Initial comments: Patient is a pleasant 58-year-old female present to the emergency department chest discomfort. Onset was a half an hour prior to arrival while at rest. Discomfort is near resolved at this time. Discomfort felt like pressure it was a 4 out of 10. Discomfort did radiate up to the jaw. Discomfort was right sternal. Patient had mild associated dyspnea and nausea. No diaphoresis. No history of similar symptoms previously. Patient did have a TIA around 2 months ago. Patient had echo done Tuesday. - Related Data Home Medications Medication Instructions Recorded Confirmed Aspirin 162 mg PO DAILY PRN 09/19/16 09/19/16 Ibuprofen [Motrin] 800 mg PO DAILY PRN 09/19/16 09/19/16 Multivitamins, Thera [Multivitamin] 1 tab PO DAILY 09/19/16 09/19/16 Allergies Allergy/AdvReac Type Severity Reaction Status Date / Time amoxicillin [From Augmentin] Allergy Rash/Hives Verified 01/22/24 11:50 clavulanic acid Allergy Rash/Hives Verified 01/22/24 11:50 [From Augmentin] ether Allergy Rash/Hives Verified 01/22/24 11:50 Review of Systems ROS Statement: Those systems with pertinent positive or pertinent negative responses have been documented in the HPI. ROS Other: All systems not noted in ROS Statement are negative. Constitutional: Denies: fever Eyes: Denies: eye pain ENT: Denies: ear pain Respiratory: Reports: as per HPI. Denies: cough Cardiovascular: Reports: as per HPI, chest pain Musculoskeletal: Denies: back pain Past Medical History Past Medical History: CVA/TIA, Supraventricular Tachycardia (SVT) Additional Past Medical History / Comment(s): Brain tumor removed 1993, SVT History of Any Multi-Drug Resistant Organisms: None Reported Past Surgical History: Orthopedic Surgery, Tonsillectomy, Tubal Ligation Additional Past Surgical History / Comment(s): brain surgery/ knee Past Psychological History: Anxiety Smoking Status: Never smoker Past Alcohol Use History: Rare Past Drug Use History: None Reported General Exam Limitations: no limitations General appearance: alert, in no apparent distress Head exam: Present: normocephalic Eye exam: Present: normal appearance Neck exam: Present: normal inspection Respiratory exam: Present: normal lung sounds bilaterally. Absent: chest wall tenderness Cardiovascular Exam: Present: regular rate, normal rhythm Expanded Peripheral pulses: 2+: Radial (R), Radial (L), Posterior Tibialis (R), Posterior Tibialis (L) GI/Abdominal exam: Present: soft. Absent: tenderness Extremities exam: Present: normal inspection Neurological exam: Present: alert Psychiatric exam: Present: normal affect, normal mood Skin exam: Present: normal color Course Vital Signs 01/22/24 11:48 Temperature 98.4 F Pulse Rate 73 Respiratory 16 Rate Blood Pressure 134/86 O2 Sat by Pulse 98 Oximetry EKG Findings - EKG Results: EKG: interpreted by ERMD, sinus rhythm, normal axis, normal QRS, normal ST/T Medical Decision Making - Medical Decision Making Was pt. sent in by a medical professional or institution (, PA, AUTO PAINTER, urgent care, hospital, or [facility]...) When possible be specific @ -No Did you speak to anyone other than the patient for history (EMS, parent, family, police, friend...)? What history was obtained from this source @ -No Did you review nursing and triage notes (agree or disagree)? Why? @ -I reviewed and agree with nursing and triage notes Were old charts reviewed (outside hosp., previous admission, EMS record, old EKG, old radiological studies, urgent care reports/EKG's, [facility] records)? Report findings @ -No old charts were reviewed Differential Diagnosis (chest pain, altered mental status, abdominal pain women, abdominal pain men, vaginal bleeding, weakness, fever, dyspnea, syncope, headache, dizziness, GI bleed, back pain, seizure, CVA, palpatations, mental health, musculoskeletal)? @ -Differential Chest Pain: Stable Angina, Unstable Angina, STEMI, NSTEMI Aortic Dissection, Pneumothorax, Musculoskeletal, Esophageal Spasm GERD, Cholecystitis, Pancreatitis, Zoster, this is not meant to be an all-inclusive list. EKG interpreted by me (3pts min.). @ -As above X-rays interpreted by me (1pt min.). @ -X-ray shows no acute process CT interpreted by me (1pt min.). @ -None done U/S interpreted by me (1pt. min.). @ -None done What testing was considered but not performed or refused? (CT, X-rays, U/S, labs)? Why? @ -None What meds were considered but not given or refused? Why? @ -None Did you discuss the management of the patient with other professionals (professionals i.e. , PA, AUTO PAINTER, lab, RT, psych nurse, social welfare research worker, fine arts instructor, teacher, liaison officer, case planner)? Give summary @ -Case was discussed with Dr. Storm who will admit covering hospital call Was smoking cessation discussed for >3mins.? @ -No Was critical care preformed (if so, how long)? @ -No Were there social determinants of health that impacted care today? How? (Homelessness, low income, unemployed, alcoholism, drug addiction, transport ation, low edu. Level, literacy, decrease access to med. care, long-term, rehab)? @ -No Was there de-escalation of care discussed even if they declined (Discuss DNR or withdrawal of care, Hospice)? DNR status @ -No What co-morbidities impacted this encounter? (DM, HTN, Smoking, COPD, CAD, Cancer, CVA, ARF, Chemo, Hep., AIDS, mental health diagnosis, sleep apnea, morbid obesity)? @ -None Was patient admitted / discharged? Hospital course, mention meds given and route, prescriptions, significant lab abnormalities, going to OR and other pertinent info. @ -Patient reevaluated. Patient and family updated on results and plan. Patient will be admitted. Admission orders written. Cardiology will be placed on consult. Undiagnosed new problem with uncertain prognosis? @ -No Drug Therapy requiring intensive monitoring for toxicity (Heparin, Nitro, Insulin, Cardizem)? @ -No Were any procedures done? @ -No Diagnosis/symptom? @ -Chest pain Acute, or Chronic, or Acute on Chronic? @ -Acute Uncomplicated (without systemic symptoms) or Complicated (systemic symptoms)? @ -Default Side effects of treatment? @ -No Exacerbation, Progression, or Severe Exacerbation? @ -No Poses a threat to life or bodily function? How? (Chest pain, [place], [place], pneumonia, PE, COPD, DKA, ARF, appy, cholecystitis, CVA, Diverticulitis, Homicidal, Suicidal, threat to staff... and all critical care pts) @ -Potential threat to cardiac function - Lab Data Result diagrams: 01/22/24 13:20 01/22/24 13:20 Lab Results 01/22/24 01/22/24 01/22/24 Range/Units 13:20 13:20 13:20 WBC 10.2 (3.8-10.6) k/uL RBC 4.87 (3.80-5.40) m/uL Hgb 14.4 (11.4-16.0) gm/dL Hct 44.4 (34.0-46.0) % MCV 91.1 (80.0-100.0) fL MCH 29.5 (25.0-35.0) pg MCHC 32.4 (31.0-37.0) g/dL RDW 13.5 (11.5-15.5) % Plt Count 197 (150-450) k/uL MPV 8.9 Neutrophils % 64 % Lymphocytes % 29 % Monocytes % 4 % Eosinophils % 2 % Basophils % 1 % Neutrophils # 6.5 (1.3-7.7) k/uL Lymphocytes # 3.0 (1.0-4.8) k/uL Monocytes # 0.4 (0-1.0) k/uL Eosinophils # 0.2 (0-0.7) k/uL Basophils # 0.1 (0-0.2) k/uL PT 10.7 (10.0-12.5) sec INR 1.0 (<1.2) APTT 24.3 (22.0-30.0) sec D-Dimer 0.52 (<0.60) mg/L FEU Sodium 138 (137-145) mmol/L Potassium 4.3 (3.5-5.1) mmol/L Chloride 107 (98-107) mmol/L Carbon Dioxide 26 (22-30) mmol/L Anion Gap 5 mmol/L BUN 12 (7-17) mg/dL Creatinine 0.42 L (0.52-1.04) mg/dL Est GFR (CKD-EPI)AfAm >90 (>60 ml/min/1.73 sqM) Est GFR (CKD-EPI)NonAf >90 (>60 ml/min/1.73 sqM) Glucose 180 H (74-99) mg/dL Calcium 9.1 (8.4-10.2) mg/dL Magnesium 1.7 (1.6-2.3) mg/dL Total Bilirubin 0.6 (0.2-1.3) mg/dL AST 29 (14-36) U/L ALT 21 (4-34) U/L Alkaline Phosphatase 93 (38-126) U/L Troponin I (0.000-0.034) ng/mL Total Protein 7.2 (6.3-8.2) g/dL Albumin 3.8 (3.5-5.0) g/dL 01/22/24 Range/Units 13:20 WBC (3.8-10.6) k/uL RBC (3.80-5.40) m/uL Hgb (11.4-16.0) gm/dL Hct (34.0-46.0) % MCV (80.0-100.0) fL MCH (25.0-35.0) pg MCHC (31.0-37.0) g/dL RDW (11.5-15.5) % Plt Count (150-450) k/uL MPV Neutrophils % % Lymphocytes % % Monocytes % % Eosinophils % % Basophils % % Neutrophils # (1.3-7.7) k/uL Lymphocytes # (1.0-4.8) k/uL Monocytes # (0-1.0) k/uL Eosinophils # (0-0.7) k/uL Basophils # (0-0.2) k/uL PT (10.0-12.5) sec INR (<1.2) APTT (22.0-30.0) sec D-Dimer (<0.60) mg/L FEU Sodium (137-145) mmol/L Potassium (3.5-5.1) mmol/L Chloride (98-107) mmol/L Carbon Dioxide (22-30) mmol/L Anion Gap mmol/L BUN (7-17) mg/dL Creatinine (0.52-1.04) mg/dL Est GFR (CKD-EPI)AfAm (>60 ml/min/1.73 sqM) Est GFR (CKD-EPI)NonAf (>60 ml/min/1.73 sqM) Glucose (74-99) mg/dL Calcium (8.4-10.2) mg/dL Magnesium (1.6-2.3) mg/dL Total Bilirubin (0.2-1.3) mg/dL AST (14-36) U/L ALT (4-34) U/L Alkaline Phosphatase (38-126) U/L Troponin I <0.012 (0.000-0.034) ng/mL Total Protein (6.3-8.2) g/dL Albumin (3.5-5.0) g/dL Disposition Clinical Impression: Chest pain Disposition: ADMITTED IP TO THIS HOSP Is patient prescribed a controlled substance at d/c from ED?: No Referrals: Nonstaff,Physician [REFERRING] - 1-2 days Time of Disposition: 14:25
[2024-01-22] MEDS: NITROGLYCERIN OINT 1 INCH/GM PACKET TOPICAL STA (13:07)
[2024-01-22] MEDS: ASPIRIN 81 MG PO STA (13:07)
--- NOTE | 2024-01-22 13:15 | XR ---
EXAMINATION TYPE: XR chest 2V DATE OF EXAM: 01/22/2024 COMPARISON: 12/31/2023 HISTORY: Chest pain TECHNIQUE: Frontal and lateral views of the chest are obtained. FINDINGS: There is no focal air space opacity, pleural effusion, or pneumothorax seen. The cardiac silhouette size is within normal limits. The osseous structures are intact. IMPRESSION: No acute cardiopulmonary process.
[2024-01-22 13:42] LABS: Basophils # (A) 0.1 k/uL (0-0.2); Basophils % (A) 1 %; Eosinophils # (A) 0.2 k/uL (0-0.7); Eosinophils % (A) 2 %; HCT 44.4 % (34.0-46.0); HGB 14.4 gm/dL (11.4-16.0); Lymphocytes % (A) 29 %; MCH 29.5 pg (25.0-35.0); MCHC 32.4 g/dL (31.0-37.0); MCV 91.1 fL (80.0-100.0); Mean Platelet Volume 8.9; Monocytes # (A) 0.4 k/uL (0-1.0); Monocytes % (A) 4 %; Neutrophils # (A) 6.5 k/uL (1.3-7.7); Neutrophils % (A) 64 %; Platelet Count 197 k/uL (150-450); RBC 4.87 m/uL (3.80-5.40); RDW 13.5 % (11.5-15.5); WBC 10.2 k/uL (3.8-10.6)
[2024-01-22 13:57] LABS: ALT 21 U/L (4-34); AST 29 U/L (14-36); African American GFR (CKD) >90 (>60 ml/min/1.73 sqM); Albumin 3.8 g/dL (3.5-5.0); Alkaline Phosphatase 93 U/L (38-126); Anion Gap 5 mmol/L; Blood Urea Nitrogen 12 mg/dL (7-17); Calcium 9.1 mg/dL (8.4-10.2); Carbon Dioxide 26 mmol/L (22-30); Chloride 107 mmol/L (98-107); Glucose 180 mg/dL (74-99); Magnesium 1.7 mg/dL (1.6-2.3); Non-African American GFR(CKD) >90 (>60 ml/min/1.73 sqM); Potassium 4.3 mmol/L (3.5-5.1); Sodium 138 mmol/L (137-145); Total Bilirubin 0.6 mg/dL (0.2-1.3); Total Protein 7.2 g/dL (6.3-8.2)
[2024-01-22 14:07] LABS: Partial Thromboplastin Time 24.3 sec (22.0-30.0); Prothrombin Time 10.7 sec (10.0-12.5)
[2024-01-22] MEDS ORDERED: NITROGLYCERIN SL TABS 0.4 MG TAB SUBLINGUAL PRN (14:25)
[2024-01-22] MEDS ORDERED: DEXTROSE 50% SYRINGE 50 ML IVP PRN ×2 (14:41)
--- NOTE | 2024-01-22 14:45 | P.HPIM ---
History of Present Illness H&P Date: 01/22/24 History of present illness; patient is 58-year-old lady with past medical history significant for SVT, hyperlipidemia, diabetes mellitus who presented to the ER because an episode of chest pain. Patient stated she was all right this morning when while sitting in her lounge she experienced chest pain that was right-sided, pressure-like, radiating to her jaw. Patient denied any lightheadedness or dizziness at the time. Patient did feel short of breath at the time. There was no complaint of palpitation. Patient was complaining of nausea but no vomiting. Because of this persistent chest pressure, she decided come to the ER. By the time patient came to the ER, her chest pain resolved. Initial lab work done in the ER showed WBC 10.2, hemoglobin 14.4, platelet count 197, D-dimer 1.52, sodium 130, potassium 4.3, BUN 12, creatinine 0.42, glucose 180, AST 29, ALT 21, troponin 0.012, bilirubin 0.6 EKG done in the ER showed heart rate of 76, no ST segment elevation or depression seen, no T-wave inversions seen. Chest x-ray done in the ER showed no acute cardiopulmonary process Patient admitted to internal medicine service REVIEW OF SYSTEMS: CONSTITUTIONAL: No fever, no malaise, no fatigue. HEENT: No recent visual problems or hearing problems. Denied any sore throat. CARDIOVASCULAR: As mentioned above PULMONARY: No shortness of breath, no cough, no hemoptysis. GASTROINTESTINAL: No diarrhea, no nausea, no vomiting, no abdominal pain. NEUROLOGICAL: No headaches, no weakness, no numbness. HEMATOLOGICAL: Denies any bleeding or petechiae. GENITOURINARY: Denies any burning micturition, frequency, or urgency. MUSCULOSKELETAL/RHEUMATOLOGICAL: Denies any joint pain, swelling, or any muscle pain. ENDOCRINE: Denies any polyuria or polydipsia. The rest of the 14-point review of systems is negative. PHYSICAL EXAMINATION: GENERAL: The patient is alert and oriented x3, not in any acute distress. Well developed, well nourished. HEENT: Pupils are round and equally reacting to light. EOMI. No scleral icterus. No conjunctival pallor. Normocephalic, atraumatic. No pharyngeal erythema. No thyromegaly. CARDIOVASCULAR: S1 and S2 present. No murmurs, rubs, or gallops. PULMONARY: Chest is clear to auscultation, no wheezing or crackles. ABDOMEN: Soft, nontender, nondistended, normoactive bowel sounds. No palpable organomegaly. MUSCULOSKELETAL: No joint swelling or deformity. EXTREMITIES: No cyanosis, clubbing, or pedal edema. NEUROLOGICAL: Gross neurological examination did not reveal any focal deficits. SKIN: No rashes. Assessment and plan Chest pain, rule out acute coronary syndrome History of TIA Diabetes mellitus Hyperlipidemia Monitor vital signs Monitor CBC Monitor CMP Continue telemetry monitoring Trend troponins. Continue aspirin Resume Crestor Monitor blood sugar level, ordered sliding scale insulin Patient had a 2D echo done a week ago will ask for records. Consult cardiology Labs and medication were reviewed.. Continue same treatment. Continue with symptomatic treatment. Resume home medication. Monitor labs and vitals. DVT and GI prophylaxis. Further recommendations as per clinical course of the patient Dictation was produced using [employer] dictation software. please excuse any grammatical, word or spelling errors. Past Medical History Past Medical History: CVA/TIA, Supraventricular Tachycardia (SVT) Additional Past Medical History / Comment(s): Brain tumor removed 1993, SVT History of Any Multi-Drug Resistant Organisms: None Reported Past Surgical History: Orthopedic Surgery, Tonsillectomy, Tubal Ligation Additional Past Surgical History / Comment(s): brain surgery/ knee Past Psychological History: Anxiety Smoking Status: Never smoker Past Alcohol Use History: Rare Past Drug Use History: None Reported Medications and Allergies Home Medications Medication Instructions Recorded Confirmed Type Aspirin 162 mg PO DAILY PRN 09/19/16 09/19/16 History Ibuprofen [Motrin] 800 mg PO DAILY PRN 09/19/16 09/19/16 History Multivitamins, Thera [Multivitamin] 1 tab PO DAILY 09/19/16 09/19/16 History Allergies Allergy/AdvReac Type Severity Reaction Status Date / Time amoxicillin [From Augmentin] Allergy Rash/Hives, Verified 01/22/24 14:37 nausea/vomiting clavulanic acid Allergy Rash/Hives, Verified 01/22/24 14:37 [From Augmentin] nausea/vomi ting ether Allergy Rash/Hives Verified 01/22/24 14:37 Physical Exam Vitals: Vital Signs Temp Pulse Resp BP Pulse Ox 01/22/24 11:48 98.4 F 73 16 134/86 98 Intake and Output 01/21/24 01/22/24 01/22/24 22:59 06:59 14:59 Other: Weight 111.584 kg Results CBC & Chem 7: 01/22/24 13:20 01/22/24 13:20 Labs: Abnormal Lab Results - Last 24 Hours (Table) 01/22/24 Range/Units 13:20 Creatinine 0.42 L (0.52-1.04) mg/dL Glucose 180 H (74-99) mg/dL
[2024-01-22] MEDS: INSULIN ASPART (NovoLOG) 100 UNIT/ML VIAL SQ SCH (18:55)
[2024-01-22 18:56] LABS: Glucose,Whole Blood 157 mg/dL (70-110)
[2024-01-22] MEDS: NITROGLYCERIN OINT 1 INCH/GM PACKET TOPICAL SCH (18:59)
[2024-01-22] MEDS: ATORVASTATIN 20 MG TAB PO SCH (20:46)
[2024-01-22 20:58] LABS: Glucose,Whole Blood 241 mg/dL (70-110)
[2024-01-23 05:53] LABS: Glucose,Whole Blood 141 mg/dL (70-110)
[2024-01-23] MEDS ORDERED: REGADENOSON 0.4 MG/5 ML SYRINGE IV PRN (07:45)
[2024-01-23] MEDS ORDERED: AMINOPHYLLINE 500 MG/20 ML VIAL IV PRN (07:45)
[2024-01-23] MEDS ORDERED: CAFFEINE CITRATE 60 MG/3 ML VIAL IV PRN (07:45)
--- NOTE | 2024-01-23 07:50 | P.CRDCN ---
History of Present Illness Consult date: 01/23/24 Chief complaint: CP History of present illness: The patient is a pleasant 58-year-old female patient with a past medical history significant for overweight as well as hypertension as well as borderline diabetes and history of meningioma s/p surgery presented to the hospital complaining of chest discomfort. She was in her usual state of health till yesterday when she was sitting at home and started experiencing discomfort in the middle of the chest and the right side of the chest as a dull feeling with radiation to the jaw. No associated symptoms of dizziness or lightheadedness or presyncope or syncope which she was experiencing shortness of breath. No sweating. She underwent further investigation including an EKG which showed sinus mechanism with no significant ST or T wave abnormalities and cardiac enzymes came in to be unremarkable and D-dimer came in to be unremarkable. Chest x-ray did not show any acute abnormalities. The patient underwent dobutamine stress echocardiogram few days ago and that came in to be inconclusive because she did not achieve 85% of maximal predicted heart rate and she achieved only 79% of maximal predicted heart rate. Examination is remarkable for stable vital signs with mildly elevated blood pressure and she stated that her pressure at home has been within normal limits with a clear breathing sounds bilaterally and regular rate and rhythm with a soft systolic murmur no edema was noted. Please also note that the patient underwent an echocardiogram which revealed normal LV systolic function with no significant valvular abnormalities but the echo was technically very difficult Assessment Atypical chest discomfort Overweight Borderline diabetes History of meningioma status post surgery Plan Continue the current medical regimen Acute coronary event was ruled out Pulmonary embolism was ruled out [facility] with the patient Past Medical History Past Medical History: CVA/TIA, Hearing Disorder / Deafness, Supraventricular Tachycardia (SVT) Additional Past Medical History / Comment(s): Brain tumor removed 1993, SVT. CVA with mild left side weakness, and memori impairment . hard of hearing since brain tumor removal in 1993 History of Any Multi-Drug Resistant Organisms: None Reported Past Surgical History: Orthopedic Surgery, Tonsillectomy, Tubal Ligation Additional Past Surgical History / Comment(s): brain surgery/ knee Past Psychological History: Anxiety Smoking Status: Never smoker Past Alcohol Use History: Rare Past Drug Use History: None Reported Medications and Allergies Home Medications Medication Instructions Recorded Confirmed Type Aspirin 81 mg PO HS 09/19/16 01/22/24 History Rosuvastatin [Crestor] 10 mg PO HS 01/22/24 01/22/24 History metFORMIN HCL ER [Glucophage XR] See Taper PO DIRECTED 01/22/24 01/22/24 History Allergies Allergy/AdvReac Type Severity Reaction Status Date / Time amoxicillin [From Augmentin] Allergy Rash/Hives, Verified 01/22/24 14:37 nausea/vomiting clavulanic acid Allergy Rash/Hives, Verified 01/22/24 14:37 [From Augmentin] nausea/vomi ting ether Allergy Rash/Hives Verified 01/22/24 14:37 Physical Exam Vitals: Vital Signs Temp Pulse Pulse Resp BP BP Pulse Ox 01/23/24 00:28 97.6 F 69 16 150/85 98 01/22/24 22:00 79 18 140/81 95 01/22/24 19:20 97.4 F L 78 18 139/86 98 01/22/24 11:48 98.4 F 73 16 134/86 98 Intake and Output 01/22/24 01/23/24 01/23/24 22:59 06:59 14:59 Other: # Voids 1 Weight 111.584 kg Results 01/22/24 13:20 01/22/24 13:20 Cardiac Enzymes 01/22/24 01/22/24 01/22/24 Range/Units 13:20 13:20 16:40 AST 29 (14-36) U/L Troponin I <0.012 <0.012 (0.000-0.034) ng/mL 01/22/24 Range/Units 19:12 AST (14-36) U/L Troponin I <0.012 (0.000-0.034) ng/mL Coagulation 01/22/24 Range/Units 13:20 PT 10.7 (10.0-12.5) sec APTT 24.3 (22.0-30.0) sec CBC 01/22/24 Range/Units 13:20 WBC 10.2 (3.8-10.6) k/uL RBC 4.87 (3.80-5.40) m/uL Hgb 14.4 (11.4-16.0) gm/dL Hct 44.4 (34.0-46.0) % Plt Count 197 (150-450) k/uL Comprehensive Metabolic Panel 01/22/24 Range/Units 13:20 Sodium 138 (137-145) mmol/L Potassium 4.3 (3.5-5.1) mmol/L Chloride 107 (98-107) mmol/L Carbon Dioxide 26 (22-30) mmol/L BUN 12 (7-17) mg/dL Creatinine 0.42 L (0.52-1.04) mg/dL Glucose 180 H (74-99) mg/dL Calcium 9.1 (8.4-10.2) mg/dL AST 29 (14-36) U/L ALT 21 (4-34) U/L Alkaline Phosphatase 93 (38-126) U/L Total Protein 7.2 (6.3-8.2) g/dL Albumin 3.8 (3.5-5.0) g/dL Current Medications Generic Name Dose Route Start Last Admin Trade Name Freq PRN Reason Stop Dose Admin Aspirin 325 mg 01/23/24 09:00 Aspirin 325 Mg Tab PO DAILY [facility] Atorvastatin Calcium 20 mg 01/22/24 21:00 01/22/24 20:46 Atorvastatin 20 Mg Tab PO Not Given HS BEN Dextrose/Water 25 ml 01/22/24 14:41 Dextrose 50% Syringe 50 Ml IVP PER PROTOCOL PRN Hypoglycemia Protocol Dextrose/Water 50 ml 01/22/24 14:41 Dextrose 50% Syringe 50 Ml IVP PER PROTOCOL PRN Hypoglycemia Protocol Insulin Aspart 0 unit 01/22/24 17:30 01/23/24 06:28 Insulin Aspart (Novolog) 100 Unit/Ml Vial SQ Not Given ACHS BEN Protocol Multivitamins 1 each 01/23/24 09:00 Multivitamins, Thera 1 Each Tab PO DAILY BEN Nitroglycerin 0.4 mg 01/22/24 14:25 Nitroglycerin Sl Tabs 0.4 Mg Tab SUBLINGUAL Q5M PRN Chest Pain Nitroglycerin 0.5 inch 01/22/24 18:00 01/23/24 05:41 Nitroglycerin Oint 1 Inch/Gm Packet TOPICAL Not Given Q6HR BEN Intake and Output 01/22/24 01/23/24 01/23/24 22:59 06:59 14:59 Other: # Voids 1 Weight 111.584 kg 01/22/24 13:20 01/22/24 13:20
[2024-01-23 11:26] LABS: Chol/HDL Ratio 2.37 Ratio; LDL Cholesterol,Calculated 55.6 mg/dL (0.0-131.0)
--- NOTE | 2024-01-23 11:32 | CA ---
Lexiscan Nuclear Stress Test Report Name: Radha Perez Exam Date: 01/23/2024 10:28 Exam Location: [place] Stress Ht (in): 63 Wt (lb): 246 BSA: 2.11 Ordering Phys: Jonel Travis MD Referring Phys: CARSON,, Technologist: Natanael Abebe Age: 58 Gender: F : 1965 Procedure CPT: Indications: Reflex order-Stress test ICD-10 Codes: Patient History: Medications: SEE CHART Meds past 24 hrs: Pretest Chest Pain: STRESS TEST Lexiscan Protocol Exercise Duration (min:sec): 01:[address] Depressions (mm): Angina Score: Genao Score: Resting HR (bpm): 70 Peak HR (bpm): 101 Resting BP (mmHg): 127 / 69 Peak BP (mmHg): 149 / 77 MPHR: 160 Target HR: 136 % MPHR: 63 METS: 1.0 Total Dose: Peak Dose: Atropine: Double Product: 72067 BP Response: Stress Termination: INFUSION COMPLETE Stress Symptoms: NAUSEA Stress Summary: ECG ANALYSIS Resting ECG: Stress ECG: CONCLUSIONS Nondiagnostic stress testing Dr. Jonel Travis MD (Electronically Signed) Final Date: 23 Jan 2024 11:31
[2024-01-23 11:58] LABS: Glucose,Whole Blood 192 mg/dL (70-110)
[2024-01-23] MEDS: ASPIRIN 325 MG TAB PO SCH (11:58)
[2024-01-23] MEDS: MULTIVITAMINS, THERA 1 EACH TAB PO SCH (11:58)
--- NOTE | 2024-01-23 12:02 | NM ---
EXAMINATION TYPE: NM stress lexiscan cardiolite DATE OF EXAM: 01/23/2024 COMPARISON: NONE CLINICAL INDICATION: Female, 58 years old with history of CP; TECHNIQUE: After the intravenous administration of 10.5 mCi Tc 99m Sestamibi - Cardiolite resting SP ECT images acquired 70 minutes post injection. The patient received 0.4mg Lexiscan, 26.7 mCi Tc 99m Sestamibi - Stress images obtained [address] injection FINDINGS: Review of stress and rest SPECT images demonstrates no distinct perfusion abnormality. Gated analysi s shows normal wall motion with an estimated left ventricular ejection fraction of 55 %. IMPRESSION: No scintigraphic evidence for reversible ischemia.
[2024-01-23 12:52] VITALS: RESP 16
[2024-01-23 15:23] VITALS: BP 133/84; PULSE 72; TEMP 98.1
== END 2024-01-23 15:26 | disposition home or self-care (01) ==
LOC: EC 11:46 → 6NMEDSUR 14:25
PROVIDERS: ADMIT Internal Medicine; ATTEND Internal Medicine
DX: R07.89 Other chest pain (principal); F41.9 Anxiety disorder, unspecified; I10 Essential (primary) hypertension; E11.9 Type 2 diabetes mellitus without complications; E78.5 Hyperlipidemia, unspecified; I69.354 Hemiplegia and hemiparesis following cerebral infarction affecting left non-dominant side; E66.3 Overweight; Z68.41 Body mass index [BMI] 40.0-44.9, adult; Z86.011 Personal history of benign neoplasm of the brain; Z79.82 Long term (current) use of aspirin; Z79.84 Long term (current) use of oral hypoglycemic drugs; Z79.899 Other long term (current) drug therapy; Z88.0 Allergy status to penicillin
CPT/HCPCS: 99285; 36415; 93005; 93017; 85379; 80061; 80053; 83735; 84484; 85025; 85610; 85730; 83036; 71046; 78452; G0378 ×2; A9500; J2785

== ENCOUNTER 2024-04-29 14:18 | Emergency (ER) | payer OTHER | END 2024-04-29 17:45 | disposition home or self-care (01) | LOC: EC 14:18 | DX: R07.89 Other chest pain (principal) | CPT/HCPCS: 93005; 99285 ==

== ENCOUNTER → 2024-06-08 | Day surgery (SDC) | payer OTHER ==
[2024-06-04 15:18] VITALS: BMI 42.7
[2024-06-08] MEDS: IV FLUID CONTINUATION 1,000 ML IV ONE (10:38)
[2024-06-08 10:40] VITALS: TEMP 97.2
[2024-06-08 10:49] LABS: Glucose,Whole Blood 134 mg/dL (70-110)
[2024-06-08] MEDS: BENZOCAINE SPRAY 1 EACH MM ONE (13:00)
[2024-06-08] MEDS: MIDAZOLAM 2 MG/2 ML VIAL IVP ONE (13:00)
[2024-06-08] MEDS: fentaNYL (PF) 50 MCG/ML 2 ML AMP IVP ONE (13:00)
[2024-06-08 19:02] VITALS: BP 164/76; PULSE 68; RESP 16
--- NOTE | 2024-06-08 19:02 | P.PCN ---
Date of Procedure: 06/08/24 Operative Findings: Transesophageal echocardiogram Performing physician Jonel Travis MD Indication Rule out cardiac source of embolization Complication None Level of sedation Moderate with sedation length of 12 minutes Procedure description After obtaining informed consent the patient was brought to the transesophageal echocardiogram room. The pulse oximetry and heart rate monitors were attached to the patient. Subsequently the patient was turned into left lateral position. The patient's throat was sprayed using lidocaine. Subsequently the transesophageal echocardiogram was advanced through the right To the mid esophageal where a 2D echocardiogram images as well as color Doppler and pulse- wave Doppler were performed. We used contrast study as well. The procedure was completed with no complication Conclusion 1. No evidence of cardiac source of embolization 2. Intact intra-atrial septum and left atrial appendage 3. Intact intracardiac valves 4. Normal biventricular systolic function
== END ==
LOC: CATHCVL 10:17
PROVIDERS: ATTEND Internal Medicine Interventional Cardiology
DX: Z86.73 Personal history of transient ischemic attack (TIA), and cerebral infarction without residual deficits
CPT/HCPCS: 93312; 93320; 93325

== ENCOUNTER 2024-10-15 19:12 | Emergency (ER) | payer OTHER ==
[2024-10-15 19:36] VITALS: RESP 16; TEMP 98.8
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
[2024-10-15] MEDS: HYDROcodone/APAP 5-325MG 1 EACH TAB PO STA (22:29)
[2024-10-15] MEDS: IBUPROFEN 800 MG TAB PO STA (22:31)
[2024-10-15] MEDS: IBUPROFEN 600 MG STARTER PACK 4 TAB BTL PO STA (22:31)
[2024-10-15] MEDS: ACET/COD 300 MG/30 MG STARTER PACK 6 TAB BTL PO STA (22:32)
[2024-10-15 23:07] VITALS: BP 143/84; PULSE 73
== END 2024-10-15 22:41 | disposition home or self-care (01) ==
LOC: EC 19:12
DX: M79.661 Pain in right lower leg (principal); M79.662 Pain in left lower leg; M79.7 Fibromyalgia; S82.142A Displaced bicondylar fracture of left tibia, initial encounter for closed fracture; Z88.0 Allergy status to penicillin; Z88.1 Allergy status to other antibiotic agents; Z88.8 Allergy status to other drugs, medicaments and biological substances; V43.52XA Car driver injured in collision with other type car in traffic accident, initial encounter; Y92.410 Unspecified street and highway as the place of occurrence of the external cause
CPT/HCPCS: 73590; 73700; 99284; L1830 ×2

== ENCOUNTER 2024-11-28 18:54 | Emergency (ER) | payer OTHER ==
[2024-11-28 19:01] VITALS: RESP 20; TEMP 98.4
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
--- NOTE | 2024-11-28 19:35 | XR ---
EXAMINATION TYPE: XR elbow complete RT DATE OF EXAM: 11/28/2024 7:30 PM INDICATION: Patient age:Female; 59 years old; Reason for study: fall, pain; PHH. pain COMPARISON: Right elbow radiograph 11/05/2010 TECHNIQUE: The right elbow was examined in AP, lateral, and oblique projections. FINDINGS: No evidence of any acute osseous pathology, joint dislocation, or soft tissue swelling is n oted. Small olecranon enthesophyte. No evidence of joint effusion is present. IMPRESSION: No evidence of acute fracture. [facility], , 11/28/2024 7:32 PM
[2024-11-28] MEDS: DIPH,PERTUS(ACELL)TETVAC-LF 0.5 ML VIAL IM ONE (20:01)
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
[2024-11-28 20:34] VITALS: BP 162/84; PULSE 64
== END 2024-11-28 20:35 | disposition home or self-care (01) ==
LOC: EC 18:54
DX: S00.03XA Contusion of scalp, initial encounter (principal); S50.01XA Contusion of right elbow, initial encounter; Z86.73 Personal history of transient ischemic attack (TIA), and cerebral infarction without residual deficits; Z23 Encounter for immunization; W18.39XA Other fall on same level, initial encounter; Y92.009 Unspecified place in unspecified non-institutional (private) residence as the place of occurrence of the external cause
CPT/HCPCS: 70450; 72125; 90471; 90715; 99284

== ENCOUNTER 2024-12-15 12:52 | Emergency (ER) | payer OTHER ==
[2024-12-15 13:03] VITALS: TEMP 97.9
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
[2024-12-15 13:24] LABS: Basophils # (A) 0.1 k/uL (0-0.2); Basophils % (A) 1 %; Eosinophils # (A) 0.2 k/uL (0-0.7); Eosinophils % (A) 1 %; HGB 15.2 gm/dL (11.4-16.0); Lymphocytes # (A) 3.5 k/uL (1.0-4.8); Lymphocytes % (A) 29 %; MCH 28.4 pg (25.0-35.0); MCV 86.1 fL (80.0-100.0); Mean Platelet Volume 8.5; Monocytes # (A) 0.5 k/uL (0-1.0); Monocytes % (A) 4 %; Neutrophils # (A) 7.9 k/uL (1.3-7.7); Neutrophils % (A) 65 %; Platelet Count 246 k/uL (150-450); RBC 5.34 m/uL (3.80-5.40); RDW 13.8 % (11.5-15.5); WBC 12.2 k/uL (3.8-10.6)
[2024-12-15] MEDS: ADENOSINE 3 MG/ML 2 ML VIAL IVP STA ×2 (13:26→14:48)
[2024-12-15 13:33] LABS: ALT 25 U/L (4-34); AST 40 U/L (14-36); African American GFR (CKD) >90 (>60 ml/min/1.73 sqM); Albumin 4.3 g/dL (3.5-5.0); Alkaline Phosphatase 99 U/L (38-126); Anion Gap 12 mmol/L; Blood Urea Nitrogen 18 mg/dL (7-17); Calcium 9.5 mg/dL (8.4-10.2); Carbon Dioxide 24 mmol/L (22-30); Chloride 104 mmol/L (98-107); Glucose 170 mg/dL (74-99); Magnesium 1.7 mg/dL (1.6-2.3); Non-African American GFR(CKD) >90 (>60 ml/min/1.73 sqM); Potassium 3.8 mmol/L (3.5-5.1); Sodium 140 mmol/L (137-145); Total Bilirubin 0.7 mg/dL (0.2-1.3); Total Protein 7.7 g/dL (6.3-8.2)
[2024-12-15 13:42] LABS: NT-Pro-B-Type Natriuretic Pept 105 pg/mL
--- NOTE | 2024-12-15 13:42 | XR ---
Chest, 2 view. CLINICAL INDICATION: Female, 59 years old with history of dysrhythmia COMPARISON: 01/22/2024 TECHNIQUE: PA and lateral views the chest are obtained. FINDINGS: The lungs are clear and there is no consolidative or interstitial opacity. There is no pleural effusion or pneumothorax. The heart, pulmonary vasculature, mediastinum and barbara appear normal. The osseous structures are intact. IMPRESSION: No significant abnormality seen. No acute cardiopulmonary disease. [facility], , 12/15/2024 1:40 PM
[2024-12-15 14:10] LABS: INR 1.1 (<1.2); Partial Thromboplastin Time 23.7 sec (22.0-30.0); Prothrombin Time 11.6 sec (10.0-12.5)
[2024-12-15] MEDS: METOPROLOL SUCCINATE (ER) 50 MG TAB.ER.24H PO STA (14:49)
[2024-12-15 14:58] LABS: T4, Free (Free Thyroxine) 1.22 ng/dL (0.78-2.19)
[2024-12-15 16:55] VITALS: BP 160/86; PULSE 84; RESP 18
== END 2024-12-15 17:00 | disposition home or self-care (01) ==
LOC: EC 12:52
DX: I47.10 Supraventricular tachycardia, unspecified (principal); Z86.79 Personal history of other diseases of the circulatory system; Z86.73 Personal history of transient ischemic attack (TIA), and cerebral infarction without residual deficits; Z88.0 Allergy status to penicillin; Z88.1 Allergy status to other antibiotic agents
CPT/HCPCS: 36415; 93005; 84439; 83880; 80053; 83735; 84443; 84484; 85025; 85610; 85730; 71046; 99291; 96374; 96376; J0153

== ENCOUNTER 2025-01-11 19:08 | Emergency (ER) | payer OTHER ==
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
[2025-01-11] MEDS: ACETAMINOPHEN TAB 325 MG TAB PO STA (20:15)
--- NOTE | 2025-01-11 20:15 | XR ---
EXAMINATION TYPE: XR shoulder complete LT DATE OF EXAM: 01/11/2025 8:11 PM COMPARISON: None. CLINICAL INDICATION: Female, 59 years old with history of fall, pain TECHNIQUE: XR shoulder complete LT views were obtained FINDINGS: There is no acute fracture/dislocation evident. The acromioclavicular and glenohumeral joint spaces appear within normal limits. The visualized ribs are intact and unremarkable. IMPRESSION: There is no acute fracture or dislocation. [facility], , 01/11/2025 8:13 PM
--- NOTE | 2025-01-11 20:22 | CT ---
EXAMINATION TYPE: CT brain cspine wo con DATE OF EXAM: 01/11/2025 COMPARISON: 11/28/2024 CLINICAL INDICATION: Female, 59 years old with history of fall left eye heamtoma; PHH, Fall, left eye hematoma. TECHNIQUE: CT scan of the head and cervical spine are performed without contrast. CT DLP: 1135.[address] CTDI: mGy Automated exposure control for dose reduction was used. FINDINGS: There is no acute intracranial hemorrhage, mass effect, or midline shift identified. The ventricles and sulci are mildly enlarged not unusual for the patient's age group. Remote insult right basal gang ankita. The globes are intact and the visualized sinuses are clear. Right frontal craniotomy. Right lenore orbital soft tissue swelling. Cervical spine is visualized in its entirety from C1 through upper thoracic levels and demonstrates s atisfactory alignment without evidence of acute fracture or dislocation. Mild degenerative changes c ervical spine. Prevertebral soft tissue appears within normal limits. The C1-C2 articulation is unre markable. IMPRESSION: 1. There is no acute fracture or dislocation evident in the cervical spine. 2. No acute intracranial hemorrhage, mass effect, or midline shift is seen. [facility], , 01/11/2025 8:19 PM
--- NOTE | 2025-01-11 20:23 | CT ---
EXAMINATION TYPE: CT facial bones wo con DATE OF EXAM: 01/11/2025 8:15 PM COMPARISON: None. CLINICAL INDICATION: Female, 59 years old with history of fall left eye heamtoma, Fall, left eye janusz erin., pain TECHNIQUE: Unenhanced CT of the facial bones was performed in the axial and coronal planes. Bone and soft tissue window settings are submitted. CT DLP: 1135.8 mGycm, Automated exposure control for dose reduction was used. Contrast used: mL of , (none if empty) FINDINGS: Right periorbital and right supraorbital soft tissue swelling. I do not see evidence for displaced facial bone fracture or depressed facial bone fracture. The globes are intact. Paranasal sinuses are well-aerated. IMPRESSION: 1. No evidence for depressed or displaced facial bone fracture. [facility], , 01/11/2025 8:21 PM
[2025-01-11 20:55] VITALS: BP 155/82; PULSE 63; RESP 16; TEMP 97.8
== END 2025-01-11 20:46 | disposition home or self-care (01) ==
LOC: EC 19:08
DX: S00.11XA Contusion of right eyelid and periocular area, initial encounter (principal); Z88.0 Allergy status to penicillin; Z88.1 Allergy status to other antibiotic agents; Z86.73 Personal history of transient ischemic attack (TIA), and cerebral infarction without residual deficits; W01.0XXA Fall on same level from slipping, tripping and stumbling without subsequent striking against object, initial encounter; Y93.01 Activity, walking, marching and hiking; Y92.480 Sidewalk as the place of occurrence of the external cause
CPT/HCPCS: 70450; 70486; 72125; 99284

== ENCOUNTER → 2025-02-25 | Outpatient (CLI) | payer OTHER ==
--- NOTE | 2025-02-25 15:00 | MR ---
EXAMINATION TYPE: MR shoulder LT wo con DATE OF EXAM: 02/25/2025 2:10 PM COMPARISON: Left shoulder x-ray January 11, 2025 CLINICAL INDICATION: Female, 59 years old with history of M25.512 PAIN IN LEFT SHOULDER, fall 3 weeks ago, possible tendon tear IV Contrast: cc (None if empty) TECHNIQUE: Multiplanar, multisequence imaging of the left shoulder is performed without contrast. FINDINGS: Rotator Cuff: Mild increased signal in the supraspinatus tendon. Slightly more prominent increased si gnal through the supraspinatus tendon. Intact subscapularis tendon. Rotator cuff muscle bulk is prese rved. Acromioclavicular Joint: Moderate narrowing of the acromioclavicular joint with mild to moderate caps ular hypertrophy. Mild spurring. Glenohumeral Joint: Narrowing is present. No significant spurring. Small joint effusion. Labrum: The labrum appears grossly intact given limitation of non-arthrogram study. Biceps Tendon: The long head of biceps is in normal location within bicipital groove. Bone marrow signal: Subtle serpiginous diminished T1 signal through the surgical neck of the right hu merus with surrounding heterogeneous T2 hyperintense material. Other: No additional significant abnormality is appreciated. IMPRESSION: 1. Correlating with history there is subacute nondisplaced comminuted fracture of the surgical neck o f the right proximal humerus with surrounding osseous contusion injury. 2. Mild tendinosis of the infraspinatus tendon. Moderate tendinosis of the supraspinatus tendon. [facility], , 02/25/2025 2:57 PM
== END | disposition home or self-care (01) ==
LOC: RADMRIMAIN 13:09
PROVIDERS: ATTEND Orthopaedic Surgery
DX: M67.814 Other specified disorders of tendon, left shoulder (principal); M25.512 Pain in left shoulder